=== PATIENT | female | born 1995 | race Two or more races ===

== ENCOUNTER 2025-09-22 06:46 | Emergency (ER) | payer OTHER ==
[~2025-09-22] VITALS: Ht 172.7 cm; Wt 76.2 kg
[~2025-09-22 06:46] MED LIST: PRENATAL CAPLE1 EACH PO
[2025-09-22] MEDS ORDERED: AMOXICILLIN500 MG PO (08:15)
[2025-09-22] MEDS ORDERED: 8 HOUR PAIN RE650 M1 PO (08:15)
== END 2025-09-22 09:29 | disposition home or self-care (01) ==
LOC: ER 06:46
DX: K05.30 Chronic periodontitis, unspecified (principal); E16.1 Other hypoglycemia